=== PATIENT | male | born 1955 | race Caucasian/White ===

== ENCOUNTER → 2017-06-17 | Outpatient (CLI) | payer BC ==
[2017-06-17] VITALS (9 sets, daily range): BP systolic 112–140; BP diastolic 66–81
[~2017-06-17] VITALS: Ht 165.1 cm; Wt 76.2 kg
[~2017-06-17] MED LIST: ASPI-482 PO; ATOR40TA59 PO; HEPARIN for IV BOLUS 10,000 UNIT/10 ML VIAL. IART ONE; HEPARIN for IV BOLUS 10,000 UNIT/10 ML VIAL. ONE; IOHEXOL 300 MG/ML 100ML VIAL. IART ONE; IOHEXOL 300 MG/ML 100ML VIAL. ONE; IV 1/2 NORMAL SALINE 1,000 ML IV SCH; LIDOCAINE 2% 20 ML VIAL. IJ ONE; LIDOCAINE 2% 20 ML VIAL. ONE; LOSA25TA4 PO; METF500T9 PO; METO25TA9 PO; METOPROLOL TART IMMED RELEASE 25 MG TABLET. PO ONE; MIDAZOLAM HCL/PF 5 MG/5 ML VIAL. IV ONE; MIDAZOLAM HCL/PF 5 MG/5 ML VIAL. ONE; NIAC1000 PO; NITROGLYCERIN 200 MCG/2 ML SYRINGE FOR CATH/VASC LAB. IART ONE; NITROGLYCERIN 200 MCG/2 ML SYRINGE FOR CATH/VASC LAB. ONE; OMEG1CAP38 PO; PANT40TA5 PO; VERAPAMIL 5 MG/2 ML VIAL. IART ONE; VERAPAMIL 5 MG/2 ML VIAL. ONE; fentaNYL PF VIAL 100 MCG/2 ML VIAL IV ONE; fentaNYL PF VIAL 100 MCG/2 ML VIAL ONE
[2017-06-17 08:50] LABS: HEMATOCRIT 45.2 % (39.0-53.0); RED BLOOD COUNT 5.11 x10^6/uL (4.30-5.70); RED CELL DISTRIBUTION WIDTH 13.4 % (11.5-14.5); WHITE BLOOD COUNT 6.6 x10^3/uL (4.0-11.0)
[2017-06-17 08:57] LABS: CALCIUM 9.4 mg/dL (8.5-10.1); GFR 75.5; POTASSIUM 4.2 mmol/L (3.5-5.1)
[2017-06-17 09:00] LABS: INR 1.1 (0.8-1.1); PROTHROMBIN TIME PATIENT 13.9 SEC (11.7-14.0)
--- NOTE | 2017-06-17 14:37 | CARD ---
APPROVED REPORT Procedure(s) performed: Coronary Angiography 71 Minutes of Moderate Sedation HISTORY The patient is a 62 year-old male with a history of : previous PCI (The PCI date was ), hypertension, dyslipidemia. INDICATION The indication(s) include : unstable angina . PROCEDURE NARRATIVE The patient was brought electively to the cardiac catheterization lab. A timeout was performed confi rming the patient's name, date of , procedure, and site of procedure. All necessary personnel w ere wearing the appropriate protective equipment and radiation monitor devices. After explaining the risks and benefits of the procedure and alternatives, informed consent was obtained. (See nursing no aquiles for medications administered). The right wrist was sterilely prepped and draped in the usual fas hion. The right wrist was infiltrated with 1 mL of 2% lidocaine for subcutaneous anesthesia. A 6 Fr ench Terumo glide sheath was inserted into the right radial artery without difficulty. Right and lef t coronary angiography was performed using a 6Fr TIG 4.0 catheter and an EBU catheter. At case comple tion the right radial sheath was removed and a Terumo radial band was applied with 13 ml of air. The patient tolerated the procedure well and there were no immediate complications. HEMODYNAMICS: AO: 120/80 CORONARY ANGIOGRAPHY: LM is a large caliber vessel with normal angiographic appearance. LAD is a small caliber vessel of approximately 2 mm with a 70% proximal to mid stenosis. D1 is a small caliber vessel with a proximal 80% stenosis. LCx is a moderate caliber non-dominant vessel with a proximal to mid 90% stenosis with a distal post- stenotic aneurysmal segment and negative remodeling from the ostium to the mid segment of the lesion. OM1 is a moderate caliber vessel with a patent proximal stent. RCA is a large caliber dominant vessel with a patent mid stent with diffuse 30% ISR. RPDA and RPL are moderate caliber vessels with normal angiographic appearance. A thorough discussion was held with the patient, family and CT surgery regarding optimal revasculariz ation strategy. Due to the size mismatch in the proximal to mid circumflex, there is increased risk o f stent thrombosis due to malapposition in the aneurysmal segment. Further, the proximal to mid LAD i s less than 2.5 mm making the risk of restenosis high with smaller stents. Therefore, given that the patient is a diabetic with less than optimal vessels for PCI, cardiac surgery consultation was obtain ed. After discussion of the various options including medical therapy, PCI and CABG, patient and brent carvajal wished to proceed with cabg. Conclusion 1. Three vessel disease 2. Patent stents in the LCx/RCA 3. Denovo disease in the ostial/proximal LCx and proximal to mid LAD Recommendations CT surgery consultation.
--- NOTE | 2017-06-17 14:39 | RAD ---
Indication preop. Anticipated coronary artery bypass surgery. Frontal and lateral views of the chest were obtained. Comparison is made to an examination 08/13/2010. There is some scarring at the right lung apex similar to the previous exam. The heart and pulmonary vessels are normal. No acute parenchymal infiltrate is seen. There has not been a significant change in the appearance of the chest compared to the previous exam. IMPRESSION: Chronic changes. No acute finding. No significant change
--- NOTE | 2017-06-17 14:47 | PDOC2 ---
CONSULT Date of Consult Date of Consult DATE: 06/17/17 TIME: 14:39 Reason for Consult Reason for Consult: Coronary artery disease Referring Physician Referring Physician: Dr Britton Identification/Chief Complaint Chief Complaint Angina Problems: Source Source: Chart review, Patient History of Present Illness Reason for Visit: The patient is a 62-year-old male who has had angina for several months on exertion, who presented today for an elective coronary angiography. He is known to have coronary artery disease and has had stents placed in his proximal LAD, proximal obtuse marginal and proximal RCA. His LV function appears to be preserved. Has a history of diabetes and a very strong family history of ischemic heart disease. His left heart cath today demonstrated a tight proximal LAD lesion and a tight stenosis at the proximal obtuse marginal. The distal marginal is also mildly aneurysmal and bigger compared to the proximal vessel, which would make stenting a challenge owing to the vessel mismatch. I was consulted to consider the patient for coronary artery bypass grafting. Past Medical History Cardiovascular: HTN Pulmonary: No pertinent hx GI: No pertinent hx Heme/Onc: No pertinent hx Hepatobiliary: No pertinent hx Psych: No pertinent hx Rheumatologic: No pertinent hx Infectious disease: No pertinent hx ENT: No pertinent hx Renal/: No pertinent hx Endocrine: Diabetes Dermatology: No pertinent hx Family History Family History: Heart Disease Social History ALCOHOL: none Drugs: None Lives: with Family Current Medications Current Medications Current Medications Sodium Chloride 1,000 ml @ 60 mls/hr [id number] IV Last administered on 06/17/17t 10:00; Start 06/17/17 at 08:25; Stop 06/18/17 at 08:24 Iohexol (Omnipaque 300 Mg/ml) 100 ml STK-MED ONCE .ROUTE ; Start 06/17/17 at 10: 16; Stop 06/17/17 at 10:17; Status DC Heparin Sodium/ Sodium Chloride 1,000 ml @ As Directed STK-MED ONCE .ROUTE ; Start 06/17/17 at 10:16; Stop 06/17/17 at 10:17; Status DC Lidocaine HCl 20 ml STK-MED ONCE .ROUTE ; Start 06/17/17 at 10:16; Stop 06/17/17 at 10:17; Status DC Nitroglycerin (Nitroglycerin) 200 mcg STK-MED ONCE .ROUTE ; Start 06/17/17 at 10: 50; Stop 06/17/17 at 10:51; Status DC Verapamil HCl (Verapamil) 5 mg STK-MED ONCE .ROUTE ; Start 06/17/17 at 10:51; Stop 06/17/17 at 10:52; Status DC Heparin Sodium (Porcine) (Heparin Sodium) 10,000 unit STK-MED ONCE .ROUTE ; Start 06/17/17 at 10:51; Stop 06/17/17 at 10:52; Status DC Fentanyl Citrate (Fentanyl 2ml Vial) 100 mcg STK-MED ONCE .ROUTE ; Start at 10:51; Stop 06/17/17 at 10:52; Status DC Midazolam HCl (Versed) 5 mg STK-MED ONCE .ROUTE ; Start 06/17/17 at 10:51; Stop 06/17/17 at 10:52; Status DC Nitroglycerin (Nitroglycerin) 200 mcg 1X ONCE IART Last administered on 12:13; Start 06/17/17 at 11:15; Stop 06/17/17 at 11:16; Status DC Verapamil HCl (Verapamil) 2.5 mg 1X ONCE IART Last administered on 06/17/17 12 :11; Start 06/17/17 at 11:15; Stop 06/17/17 at 11:16; Status DC Heparin Sodium (Porcine) (Heparin Sodium) 2,500 unit 1X ONCE IART Last administered on 06/17/17 12:10; Start 06/17/17 at 11:15; Stop 06/17/17 at 11:16; Status DC Heparin Sodium/ Sodium Chloride 1,000 unit 1X ONCE IART Last administered on 12:13; Start 06/17/17 at 11:15; Stop 06/17/17 at 11:16; Status DC Midazolam HCl (Versed) 5 mg 1X ONCE IV Last administered on 06/17/17 12:10; Start 06/17/17 at 11:15; Stop 06/17/17 at 11:16; Status DC Fentanyl Citrate (Fentanyl 2ml Vial) 100 mcg 1X ONCE IV Last administered on 12:12; Start 06/17/17 at 11:15; Stop 06/17/17 at 11:16; Status DC Iohexol (Omnipaque 300 Mg/ml) 100 ml 1X ONCE IART Last administered on t 12:12; Start 06/17/17 at 11:15; Stop 06/17/17 at 11:16; Status DC Lidocaine HCl 20 ml 1X ONCE IJ Last administered on 06/17/17t 12:12; Start 06/17 at 11:15; Stop 06/17/17 at 11:16; Status DC Metoprolol Tartrate (Lopressor) 25 mg 1X ONCE PO ; Start 06/17/17 at 13:30; Stop 06/17/17 at 13:31; Status DC Cefazolin Sodium 1 gm/Sodium Chloride 50 ml @ 100 mls/hr 1X ONCE IV ; Start at 13:30; Stop 06/17/17 at 13:59; Status DC Active Scripts Active Reported Losartan Potassium 25 Mg Tablet 25 Mg PO DAILY Atorvastatin Calcium 40 Mg Tablet 40 Mg PO HS Pantoprazole Sodium 40 Mg Tablet.dr 20 Mg PO DAILY Metoprolol Succinate ( Xl ) (Metoprolol Succinate) 25 Mg Tab.er.24h 25 Mg PO DAILY Niaspan (Niacin) 1,000 Mg Tab.er.24h 2,000 Mg PO HS [place] 3 Fish Oil Softgel ([place]-3 Fatty Acids/Fish Oil) 1 Each Capsule.dr 1 Each PO DAILY Aspir 81 (Aspirin) 81 Mg Tablet.dr 81 Mg PO DAILY Allergies Allergies: Coded Allergies: ROLA Inhibitors (Verified Allergy, Intermediate, 06/17/17) ROS General: No: Chills, Night Sweats, Fatigue, Malaise, Appetite PSYCHOLOGICAL ROS: No: Anxiety, Behavioral Disorder, Concentration difficultie , Decreased libido, Depression, Disorientation, Hallucinations, Hostility, Irritablity, Memory difficulties, Mood Swings, Obsessive thoughts, Physical abuse, Sexual abuse, Sleep disturbances, Suicidal ideation Eyes: No Blurry vision, No Decreased vision, No Double vision, No Dry eyes, No Excessive tearing, No Eye Pain, No Itchy Eyes, No Loss of vision, No Photophobia , No Scotomata, No Uses contacts, No Uses glasses HEENT: No: Heacaches, Visual Changes, Hearing change, Nasal congestion, Nasal discharge, Oral lesions, Sinus pain, Sore Throat, Epistaxis, Sneezing, Snoring, Tinnitus, Vertigo, Vocal changes ALLERGY AND IMMUNOLOGY: No: Hives, Insect Bite Sensitivity, Itchy/Watery Eyes, Nasal Congestion, Post Nasal Drip, Seasonal Allergies Hematological and Lymphatic: No: Bleeding Problems, Blood Clots, Blood Transfusions, Brusing, Night Sweats, Pallor, Swollen Lymph Nodes ENDOCRINE: No: Breast Changes, Galactorrhea, Hair Pattern Changes, Hot Flashes , Malaise/lethargy, Mood Swings, Palpitations, Polydipsia/polyuria, Skin Changes , Temperature Intolerance, Unexpected Weight Changes Respiratory: No: Cough, Hemoptysis, Orthopnea, Pleuritic Pain, Shortness of breath, SOB with excertion, Sputum Changes, Stridor, Tachypnea, Wheezing Cardiovascular: No Chest Pain, No Palpitations, No Orthopnea, No Paroxysmal Noc. Dyspnea, No Edema, No Lt Headedness Gastrointestinal: No Nausea, No Vomiting, No Abdominal Pain, No Diarrhea, No Constipation, No Melena, No Hematochezia Genitourinary: No Dysuria, No Frequency, No Incontinence, No Hematuria, No Retention, No Discharge, No Urgency, No Pain, No Flank Pain Musculoskeletal: No Gait Disturbance, No Joint Pain, No Joint Stiffness, No Joint Swelling, No Muscle Pain, No Muscular Weakness, No Pain In:, No Swelling In: Neurological: No Behavorial Changes, No Bowel/Bladder ControlChng, No Confusion , No Dizziness, No Gait Disturbance, No Headaches, No Impaired Coord/balance, No Memory Loss, No Numbness/Tingling, No Seizures, No Speech Problems, No Tremors, No Visual Changes, No Weakness Skin: No Dry Skin, No Eczema, No Hair Changes, No Lumps, No Mole Changes, No Mottling, No Nail Changes, No Pruritus, No Rash, No Skin Lesion Changes, No Acne Physical Exam General: Alert, Oriented X3, No acute distress HEENT: Atraumatic, PERRLA Lungs: Clear to auscultation Heart: Regular rate, Normal S1, Normal S2 Abdomen: Soft, No tenderness Extremities: No edema Skin: No significant lesion Neuro: Normal gait, Normal speech, Strength at 5/5 X4 ext, Normal tone, Sensation intact, Cranial nerves 3-12 NL Psych/Mental Status: Mental status NL MUSCULOSKELETAL: No deformity Vitals VITALS Vital Signs Date Time Temp Pulse Resp B/P (MAP) Pulse Ox O2 Delivery O2 Flow Rate FiO2 06/17/17 14:05 Room Air 06/17/17 13:44 69 21 98 06/17/17 09:15 98.1 120/81 (94) 98.1 Labs Labs Laboratory Tests Test 06/17/17 08:41 White Blood Count 6.6 x10^3/uL (4.0-11.0) Red Blood Count 5.11 x10^6/uL (4.30-5.70) Hemoglobin 15.0 g/dL (13.0-17.5) Hematocrit 45.2 % (39.0-53.0) Mean Corpuscular Volume 89 fL (79-100) Mean Corpuscular Hemoglobin 29 pg (25-35) Mean Corpuscular Hemoglobin Concent 33 g/dL (31-37) Red Cell Distribution Width 13.4 % (11.5-14.5) Platelet Count 207 x10^3/uL (140-400) Prothrombin Time 13.9 SEC (11.7-14.0) Prothromb Time International Ratio 1.1 (0.8-1.1) Sodium Level 140 mmol/L (136-145) Potassium Level 4.2 mmol/L (3.5-5.1) Chloride Level 101 mmol/L (98-107) Carbon Dioxide Level 35 mmol/L (21-32) Anion Gap 4 (6-14) Blood Urea Nitrogen 15 mg/dL (8-26) Creatinine 1.0 mg/dL (0.7-1.3) Estimated GFR (Cockcroft-Gault) 75.5 Glucose Level 210 mg/dL (70-99) Calcium Level 9.4 mg/dL (8.5-10.1) Laboratory Tests Test 06/17/17 08:41 White Blood Count 6.6 x10^3/uL (4.0-11.0) Red Blood Count 5.11 x10^6/uL (4.30-5.70) Hemoglobin 15.0 g/dL (13.0-17.5) Hematocrit 45.2 % (39.0-53.0) Mean Corpuscular Volume 89 fL (79-100) Mean Corpuscular Hemoglobin 29 pg (25-35) Mean Corpuscular Hemoglobin Concent 33 g/dL (31-37) Red Cell Distribution Width 13.4 % (11.5-14.5) Platelet Count 207 x10^3/uL (140-400) Prothrombin Time 13.9 SEC (11.7-14.0) Prothromb Time International Ratio 1.1 (0.8-1.1) Sodium Level 140 mmol/L (136-145) Potassium Level 4.2 mmol/L (3.5-5.1) Chloride Level 101 mmol/L (98-107) Carbon Dioxide Level 35 mmol/L (21-32) Anion Gap 4 (6-14) Blood Urea Nitrogen 15 mg/dL (8-26) Creatinine 1.0 mg/dL (0.7-1.3) Estimated GFR (Cockcroft-Gault) 75.5 Glucose Level 210 mg/dL (70-99) Calcium Level 9.4 mg/dL (8.5-10.1) Assessment/Plan Assessment/Plan 62-year-old male with angina for several months on exertion, who presented today for an elective coronary angiography. He is known to have coronary artery disease and has had stents placed in his proximal LAD, proximal obtuse marginal and proximal RCA. His LV function appears to be preserved. Has a history of diabetes and a very strong family history of ischemic heart disease. His left heart cath today demonstrated a tight proximal LAD lesion and a tight stenosis at the proximal obtuse marginal. The distal marginal is also mildly aneurysmal and bigger compared to the proximal vessel, which would make stenting a challenge owing to the vessel mismatch. The patient is a candidate for surgical coronary revascularization. He will need CABG 2 (VELEZ to LAD, SVG to OM). I quoted a mortality of 1%. I also explained there was a 1% risk of renal failure, stroke, 5% risk of pneumonia, wound infection, perioperative [place], bleeding, and a risk of arrhythmias. The patient accepts these risks and agrees to proceed. Will plan for CABG on June 18, 2017. Obtain preoperative echo, vein mapping, noncontrast CT of the chest, carotid duplex, labs, crossmatch to units PRBCs. The patient will have to stay away from work for 6 weeks postoperatively. LISSA SINGH MD Jun 17, 2017 14:47
[2017-06-17 15:33] LABS: BASO % 1 % (0-3); EOS % 3 % (0-3); HEMATOCRIT 40.7 % (39.0-53.0); HEMOGLOBIN 13.6 g/dL (13.0-17.5); LYMPH # 2.4 x10^3/uL (1.0-4.8); LYMPH % 40 % (24-48); MEAN CORPUSCULAR HEMOGLOBIN 29 pg (25-35); MEAN CORPUSCULAR HGB CONC 33 g/dL (31-37); MEAN CORPUSCULAR VOLUME 88 fL (79-100); MONO % 7 % (0-9); NEUT % 51 % (31-73); PLATELET COUNT 172 x10^3/uL (140-400); RED BLOOD COUNT 4.62 x10^6/uL (4.30-5.70); RED CELL DISTRIBUTION WIDTH 13.2 % (11.5-14.5); WHITE BLOOD COUNT 6.1 x10^3/uL (4.0-11.0)
[2017-06-17 15:43] LABS: INR 1.2 (0.8-1.1); PROTHROMBIN TIME PATIENT 14.7 SEC (11.7-14.0)
[2017-06-17 16:08] LABS: ALBUMIN 3.3 g/dL (3.4-5.0); ALBUMIN/GLOBULIN RATIO 0.9 (1.0-1.7); CALCIUM 8.5 mg/dL (8.5-10.1); GFR 75.5; POTASSIUM 3.7 mmol/L (3.5-5.1); TOTAL BILIRUBIN 0.4 mg/dL (0.2-1.0)
--- NOTE | 2017-06-17 16:25 | CARD ---
APPROVED REPORT EXAM: Two-dimensional and M-mode echocardiogram with Doppler and color Doppler. Other Information Quality : Average Rhythm : NSR INDICATION Cardiac Disease: CAD 2D DIMENSIONS Left Atrium(2D)3.1 (1.6-4.0cm)IVSd1.0 (0.7-1.1cm) Aortic Root(2D)3.1 (2.0-3.7cm)LVDd4.4 (3.9-5.9cm) LVOT Diameter2.1 (1.8-2.4cm)PWd0.9 (0.7-1.1cm) LVDs2.9 (2.5-4.0cm)FS (%) 34.8 % SV56.4 ml Aortic Valve AoV Peak William.111.6cm/sAoV VTI22.6cm AO Peak GR.5.0mmHgLVOT VTI 20.55cm AO Mean GR.3mmHg Mitral Valve MV E Feamtllr51.1cm/sMV DECEL [id number] MV A Byltvcox06.9cm/sE/A Ratio0.8 MV A [id number] TDI Lateral E' P. V7.01cm/sMedial E' P. V7.01cm/s E/Lateral E'9.1E/Medial E'9.1 Tricuspid Valve TR P. [id number]/sRAP [id number] TR Peak Gr.42xcBiREQD09dgAs LEFT VENTRICLE The left ventricle is normal size. There is borderline to mild concentric left ventricular hypertroph y. Left ventricle systolic function is normal. The Ejection Fraction is 55-60%. There is normal LV se gmental wall motion. The left ventricular diastolic function and filling is normal for age. RIGHT VENTRICLE The right ventricle is normal size. The right ventricular systolic function is normal. ATRIA The left atrium size is normal. The right atrium size is normal. The interatrial septum is intact wit h no evidence for an atrial septal defect or patent foramen ovale as noted on 2-D or Doppler imaging. AORTIC VALVE The aortic valve is normal in structure and function. The aortic valve is trileaflet. Doppler and Col or Flow revealed no significant aortic regurgitation. There is no significant aortic valvular stenosi s. MITRAL VALVE The mitral valve is normal in structure and function. There is no mitral valve stenosis. Doppler and Color Flow revealed mild mitral regurgitation. TRICUSPID VALVE The tricuspid valve is normal in structure and function. Doppler and Color Flow revealed mild tricusp id regurgitation. The PA pressure was estimated at 33 mmHg. There is no tricuspid valve stenosis. PULMONIC VALVE The pulmonic valve is not well visualized. Doppler and Color Flow revealed no pulmonic valvular regur gitation. There is no pulmonic valvular stenosis. GREAT VESSELS The aortic root is normal in size. The ascending aorta is normal in size. The IVC is normal in size a nd collapses >50% with inspiration. PERICARDIAL EFFUSION There is no evidence of significant pericardial effusion. Critical Notification Critical Value: No <Conclusion> The left ventricle is normal size. Left ventricle systolic function is normal. The Ejection Fraction is 55-60%. There is borderline to mild concentric left ventricular hypertrophy. There is no significant aortic valvular stenosis. Doppler and Color Flow revealed no significant aortic regurgitation. Doppler and Color Flow revealed mild mitral regurgitation. Doppler and Color Flow revealed mild tricuspid regurgitation. The PA pressure was estimated at 33 mmHg.
--- NOTE | 2017-06-17 16:31 | RAD ---
APPROVED REPORT Patient Location: IN-PATIENT Indications PRE-OP CABG Vein Measurements Great Saphenous Small Saphenous RightLeft RightLeft Saph-Fem. Junction 0.45mm0.54mmProximal 0.35mm0.27mm Mid Thigh 0.14mm0.32mmMid 0.38mm0.23mm Distal Thigh 0.00mm0.32mmDistal 0.00mm0.18mm Proximal Calf 0.00mm0.17mm Mid Calf 0.00mm0.17mm Distal Calf 0.00mm0.17mm Findings Heredia scale images of the bilateral greater and lesser saphenous veins were obtained in preparation fo r preoperative bypass planning. Dimensions are as noted above. Of note the right great saphenous vein below the mid thigh is too smal l to visualize. Critical Notification Critical Value: No <Conclusion> 1. Adequate saphenous vein conduit on the left lower extremity with notably small size of the right g reat saphenous vein.
--- NOTE | 2017-06-17 16:33 | RAD ---
APPROVED REPORT Patient Location: IN-PATIENT Laterality:Bilateral Indications PRE-OP CABG Doppler Spectral Velocity Analysis Right Left mCCA 79/ cm/smCCA 81/ cm/s ECA 100/ cm/sECA 95/ cm/s pICA 46/16 cm/spICA 83/21 cm/s Dmitry 70/22 cm/smICA 95/95 cm/s dICA 75/30 cm/sdICA 49/14 cm/s ICA/CCA 0.95ICA/CCA 1.20 Findings Heredia scale images of the bilateral carotid arterial system was performed. On the right side there is mild to moderate atherosclerotic plaque with no evidence of high grade monica nosis. Velocities are noted as above consistent with no obstructive disease. The vertebral velocity o n the right side is antegrade. In a similar fashion on the left carotid system there is minimal plaque circumferentially in the comm on carotid and bifurcation area. Velocities are noted as above. There is antegrade vertebral velocity . Again there is minimal after chronic disease. Critical Notification Critical Value: No <Conclusion> No evidence of high-grade disease in the bilateral common carotid, internal carotid and external tello tid vessels with antegrade vertebral velocities.
== END | disposition home or self-care (01) ==
LOC: CCL 07:47
PROVIDERS: ATTEND Internal Medicine Cardiovascular Disease
DX: I20.0 Unstable angina (principal); I25.10 Atherosclerotic heart disease of native coronary artery without angina pectoris; I10 Essential (primary) hypertension; E78.5 Hyperlipidemia, unspecified; Z79.01 Long term (current) use of anticoagulants
CPT/HCPCS: 36415; 71020; 80048; 83036; 85027; 85610; 85730; 93306; 93454; 93880; 93970; 99152; 99153; C1769; C1887; C1892; J1644; J2001; J2250; J3010; J3490; Q9967; 80053

== ENCOUNTER → 2019-09-02 | Outpatient (CLI) | payer BC ==
[2017-06-17 13:44] VITALS: BP 126/76
[~2019-09-02] MED LIST changes: -HEPARIN for IV BOLUS 10,000 UNIT/10 ML VIAL. IART ONE; -HEPARIN for IV BOLUS 10,000 UNIT/10 ML VIAL. ONE; -IOHEXOL 300 MG/ML 100ML VIAL. IART ONE; -IOHEXOL 300 MG/ML 100ML VIAL. ONE; -IV 1/2 NORMAL SALINE 1,000 ML IV SCH; -LIDOCAINE 2% 20 ML VIAL. IJ ONE; -LIDOCAINE 2% 20 ML VIAL. ONE; -LOSA25TA4 PO; +LOSA25TA54 PO; +METF500T11 PO; -METF500T9 PO; +METO-239 PO; -METO25TA9 PO; -METOPROLOL TART IMMED RELEASE 25 MG TABLET. PO ONE; -MIDAZOLAM HCL/PF 5 MG/5 ML VIAL. IV ONE; -MIDAZOLAM HCL/PF 5 MG/5 ML VIAL. ONE; -NITROGLYCERIN 200 MCG/2 ML SYRINGE FOR CATH/VASC LAB. IART ONE; -NITROGLYCERIN 200 MCG/2 ML SYRINGE FOR CATH/VASC LAB. ONE; -PANT40TA5 PO; +PANT40TA77 PO; -VERAPAMIL 5 MG/2 ML VIAL. IART ONE; -VERAPAMIL 5 MG/2 ML VIAL. ONE; -fentaNYL PF VIAL 100 MCG/2 ML VIAL IV ONE; -fentaNYL PF VIAL 100 MCG/2 ML VIAL ONE
--- NOTE | 2019-09-02 10:34 | CARD ---
MR#: [id number] Date of Study: 09/02/2019 Ordering Physician: NUPUR ROBERTS, Referring Physician: NUPUR ROBERTS, Tech: Carmela Kuo APPROVED REPORT EXAM: Two-dimensional and M-mode echocardiogram with Doppler and color Doppler. Other Information Quality : AverageHR: 71bpm INDICATION Dyspnea Coronary Artery Disease 2D DIMENSIONS RVDd3.0 (2.9-3.5cm)Left Atrium(2D)3.7 (1.6-4.0cm) IVSd1.2 (0.7-1.1cm)Aortic Root(2D)2.3 (2.0-3.7cm) LVDd3.7 (3.9-5.9cm)LVOT Diameter2.0 (1.8-2.4cm) PWd1.0 (0.7-1.1cm)LVDs1.8 (2.5-4.0cm) FS (%) 51.0 %SV48.4 ml LVEF(%)83.0 (>50%) Aortic Valve AoV Peak William.111.2cm/sAoV VTI24.7cm AO Peak GR.4.9mmHgLVOT Peak William.100.9cm/s AO Mean GR.3mmHgAVA (VMAX)2.84cm2 Mitral Valve MV E Muqdovtz59.4cm/sMV E Peak Gr.3mmHg MV DECEL [id number] A Klrxhbey75.4cm/s MV E Mean Gr.1mmHgE/A Ratio0.9 Pulmonary Valve PV Peak Utpxjisq87.4cm/s Tricuspid Valve RAP [id number] Pulmonary Vein S1 Iecjcdvb22.1cm/sD2 Yctllayg99.4cm/s LEFT VENTRICLE The left ventricle is normal size. There is borderline concentric left ventricular hypertrophy. The l eft ventricular systolic function is normal and the ejection fraction is within normal range with an estimated ejection fraction of 65%. There is normal LV segmental wall motion. Transmitral Doppler zev w pattern is Grade I-abnormal relaxation pattern. RIGHT VENTRICLE The right ventricle is normal size. There is normal right ventricular wall thickness. The right ventr icular systolic function is normal. ATRIA The left atrium size is normal. The right atrium size is normal. Prominent Eustachian Valve noted. Th e interatrial septum is intact with no evidence for an atrial septal defect or patent foramen ovale a s noted on 2-D or Doppler imaging. AORTIC VALVE The aortic valve is thickened but opens well. Doppler and Color Flow revealed no significant aortic r egurgitation. There is no significant aortic valvular stenosis. MITRAL VALVE The mitral valve is thickened but opens well. There is no evidence of mitral valve prolapse. There is no mitral valve stenosis. Doppler and Color-flow revealed trace mitral regurgitation. TRICUSPID VALVE The tricuspid valve is normal in structure and function. Doppler and Color Flow revealed trace tricus pid regurgitation. There is no tricuspid valve stenosis. PULMONIC VALVE Pulmonic valve not well visualized. Doppler and Color Flow revealed no pulmonic valvular regurgitatio n. There is no pulmonic valvular stenosis. GREAT VESSELS The aortic root is normal in size. The ascending aorta is normal in size. The IVC is normal in size a nd collapses >50% with inspiration. PERICARDIAL EFFUSION There is no pleural effusion. There is no evidence of significant pericardial effusion. Critical Notification Critical Value: No <Conclusion> The left ventricular systolic function is normal and the ejection fraction is within normal range wit h an estimated ejection fraction of 65%. There is normal LV segmental wall motion. Signed by : Nupur Roberts, Electronically Approved : 09/02/2019 10:34:25
== END | disposition home or self-care (01) ==
LOC: ECHO 09:20
PROVIDERS: ATTEND Internal Medicine Cardiovascular Disease
DX: I51.7 Cardiomegaly (principal); I25.10 Atherosclerotic heart disease of native coronary artery without angina pectoris
CPT/HCPCS: 93306